=== PATIENT | female | born 1940 | race Caucasian/White ===

== ENCOUNTER 2020-10-10 15:25 | Inpatient (IN) | payer MEDICARE, OTHER ==
[~2020-10-10] VITALS: Ht 162.6 cm; Wt 41.3 kg
[~2020-10-10 15:25] MED LIST: CIPRO500 MG PO
[2020-10-10 16:36] LABS: APTT 22.1 SECONDS (22.8-39.4); INR 1.03 (0.85-1.17); PROTIME 12.5 SECONDS (11.6-15.0)
[2020-10-10 16:37] LABS: CALC OSMOLALITY 283 mosm/kg (275-300); CALCIUM 8.2 mg/dL (8.5-10.1); CHLORIDE - SERUM 102 mmol/L (98-107); CREATININE - SERUM 1.8 mg/dL (0.6-1.3); GLUCOSE 95 mg/dL (74-106); POTASSIUM - SERUM 3.6 mmol/L (3.5-5.1); SODIUM 136 mmol/L (136-145); UREA NITROGEN 46 mg/dL (7-18); eGFR NON AFRICAN AMERICAN 29 mL/min (90-120)
[2020-10-10 16:40] LABS: BASOPHILS 0.1 % (0-2); HEMATOCRIT 40.1 % (36.0-48.0); IMMATURE GRANULOCYTES 0.4 % (0-5); LYMPHOCYTE ABS# 1.36 10x3/uL (1.18-3.74); LYMPHOCYTES 13.6 % (15-50); MCHC 32.4 g/dL (31.0-37.0); MCV 101.8 fL (80.0-100.0); MEAN PLATELET VOLUME 9.7 fL (7.4-10.4); MONOCYTES 9.9 % (2-11); NEUTROPHIL ABS# 7.39 10x3/uL (1.56-6.13); PLATELET COUNT 409 10x3/uL (130-400); RBC 3.94 10x6/uL (4.00-5.40); RDW 15.9 % (11.5-14.5)
[2020-10-10 16:54] LABS: ALBUMIN 2.8 g/dL (3.4-5.0); ALKALINE PHOSPHATASE 88 U/L (30-120); ALT (SGPT) 12 U/L (10-68); BILIRUBIN - TOTAL 0.31 mg/dL (0.2-1.3); CKMB 1.7 U/L (0.0-3.6); CREATINE KINASE 31 UL (21-215); LIPASE 215 U/L (73-393); MAGNESIUM - SERUM 1.3 mg/dL (1.8-2.4); PROTEIN - SERUM 6.7 g/dL (6.4-8.2); THYROID STIMULATING HORMONE 3.15 uIU/mL (0.36-3.74); TROPONIN-I 0.016 ng/mL (0.000-0.060)
[2020-10-10 17:17] VITALS: BP 117/70
--- NOTE | 2020-10-10 18:40 | NUR ---
ASSISTED TO AMBULATE TO FOR URINE SPECIMEN. SPECIMEN TO LAB. PATIENT OFF O2 DURING THIS TIME. SPO2 86% UPON RETURN TO ROOM. 02 RESUMED AT 3L/M.
[2020-10-10 18:52] LABS: BILIRUBIN NEGATIVE (NEGATIVE); KETONE NEGATIVE (NEGATIVE); NITRITE NEGATIVE (NEGATIVE); UROBILINOGEN NORMAL mg/dL (< 2)
[2020-10-10 20:12] VITALS: BP 117/70
[2020-10-10 22:06] VITALS: BP 113/63
[2020-10-10 23:01] VITALS: BP 114/65
[2020-10-11 00:03] VITALS: BP 114/63
[2020-10-11 01:28] VITALS: BP 110/57
[2020-10-11] MEDS ORDERED: SYMBICORT 80-10.2 GM INH (02:20)
[2020-10-11] MEDS ORDERED: LEXAPRO20 MG PO (02:21)
[2020-10-11] MEDS ORDERED: ZYLOPRIM100 MG PO (02:22)
[2020-10-11 08:03] LABS: ALBUMIN 2.1 g/dL (3.4-5.0); ALKALINE PHOSPHATASE 75 U/L (30-120); BILIRUBIN - TOTAL 0.36 mg/dL (0.2-1.3); CALCIUM 7.5 mg/dL (8.5-10.1); CHLORIDE - SERUM 107 mmol/L (98-107); CKMB 1.3 U/L (0.0-3.6); CREATINE KINASE 28 UL (21-215); GLUCOSE 81 mg/dL (74-106); POTASSIUM - SERUM 3.6 mmol/L (3.5-5.1); PROTEIN - SERUM 5.3 g/dL (6.4-8.2); SODIUM 136 mmol/L (136-145)
[2020-10-11 08:04] LABS: ALT (SGPT) 7 U/L (10-68); CALC OSMOLALITY 278 mosm/kg (275-300); CARBON DIOXIDE 16.5 mmol/L (21.0-32.0); CREATININE - SERUM 1.2 mg/dL (0.6-1.3); MAGNESIUM - SERUM 1.9 mg/dL (1.8-2.4); TROPONIN-I < 0.017 ng/mL (0.000-0.060); UREA NITROGEN 34 mg/dL (7-18); eGFR NON AFRICAN AMERICAN 46 mL/min (90-120)
[2020-10-11 08:15] LABS: BASOPHILS 0.4 % (0-2); EOSINOPHILS 2.9 % (0-7); HEMATOCRIT 36.8 % (36.0-48.0); HEMOGLOBIN 11.8 g/dL (12-16); LYMPHOCYTE ABS# 1.06 10x3/uL (1.18-3.74); LYMPHOCYTES 13.3 % (15-50); MCH 33.1 pg (26.0-34.0); MCHC 32.1 g/dL (31.0-37.0); MCV 103.4 fL (80.0-100.0); MEAN PLATELET VOLUME 9.8 fL (7.4-10.4); MONOCYTES 9.4 % (2-11); NEUTROPHIL ABS# 5.82 10x3/uL (1.56-6.13); RBC 3.56 10x6/uL (4.00-5.40); RDW 16.2 % (11.5-14.5)
[2020-10-11 08:16] LABS: PLATELET COUNT 246 10x3/uL (130-400)
[2020-10-11 09:06] VITALS: BP 113/64
--- NOTE | 2020-10-11 12:20 | NUR ---
PATIENT SITTING HIGH FOWLERS AAOX4, RESP EVEN AND NON LABORED, NO S/S OF DISTRESS, MEDICATIONS ADMISNITERED WITH NO COMPLICATIONS, NO FUTRHER NEEDS AT THIS TIME, RONNELL FUNEZ
[2020-10-11 12:50] VITALS: Ht 162.6 cm; Wt 41.3 kg
--- NOTE | 2020-10-11 18:00 | NUR ---
I have reviewed this patient and I concur with the Shift Assessment completed by the Licensed Practical Nurse today this shift.
--- NOTE | 2020-10-11 18:02 | NUR ---
PATIENT DOES NOT HAVE A RIDE HOME UNTIL 10/12/20 AROUND 1000AM, WILL HOLD DISCHARGE UNTIL IN THE MORNING.
--- NOTE | 2020-10-11 18:10 | NUR ---
PATIENT WEARING SCD'S AND PATIENT EDUCATED ON THEM, RONNELL FUNEZ
--- NOTE | 2020-10-11 19:30 | NUR ---
RECEIVED REPORT, WILL ASSUME CARE OF PT, WATCHING TV, DENIES ANY NEEDS AT THIS TIME, BED IS LOW, SRX2, CALL LIGHT IN REACH, WILL CONTINUE PLAN OF CARE
[2020-10-11 20:09] VITALS: BP 112/26
--- NOTE | 2020-10-11 20:46 | NUR ---
GAVE WALK TEST TO RT
[2020-10-12 01:28] VITALS: BP 120/68
--- NOTE | 2020-10-12 02:54 | NUR ---
I have reviewed this patient and I concur with the Shift Assessment completed by the Licensed Practical Nurse today this shift.
[2020-10-12 05:00] LABS: BASOPHILS 0.2 % (0-2); EOSINOPHILS 3.6 % (0-7); HEMATOCRIT 35.2 % (36.0-48.0); HEMOGLOBIN 11.1 g/dL (12-16); IMMATURE GRANULOCYTES 0.2 % (0-5); LYMPHOCYTE ABS# 0.79 10x3/uL (1.18-3.74); LYMPHOCYTES 9.8 % (15-50); MCH 32.6 pg (26.0-34.0); MCHC 31.5 g/dL (31.0-37.0); MCV 103.5 fL (80.0-100.0); MEAN PLATELET VOLUME 9.4 fL (7.4-10.4); MONOCYTES 9.4 % (2-11); NEUTROPHIL ABS# 6.21 10x3/uL (1.56-6.13); NEUTROPHILS 76.8 % (40-80); RDW 16.3 % (11.5-14.5); WBC 8.1 10x3/uL (4.8-10.8)
[2020-10-12 05:07] LABS: PLATELET COUNT 330 10x3/uL (130-400)
[2020-10-12 05:23] LABS: ANION GAP 13.6 mmol/L (8-16); BILIRUBIN - TOTAL 0.38 mg/dL (0.2-1.3); CALCIUM 7.9 mg/dL (8.5-10.1); CARBON DIOXIDE 18.1 mmol/L (21.0-32.0); CREATININE - SERUM 1.1 mg/dL (0.6-1.3); POTASSIUM - SERUM 3.7 mmol/L (3.5-5.1); PROTEIN - SERUM 5.3 g/dL (6.4-8.2)
[2020-10-12 05:29] VITALS: BP 109/58
--- NOTE | 2020-10-12 06:36 | NUR ---
I have reviewed this patient and I concur with the Shift Assessment completed by the Licensed Practical Nurse today this shift.
[2020-10-12 08:00] VITALS: BP 100/60
[2020-10-12] MEDS ORDERED: MAGNESIUM OXID250 MG PO (08:58)
--- NOTE | 2020-10-12 09:23 | MORECARE ---
CASE MANAGEMENT DISCHARGE SUMMARY PATIENT: CIARA DAILEY UNIT: [id number] ADM DATE: 10/10/20 AGE: 80 : 39 SEX: F ROOM/BED: D.6427 AUTHOR: JEANETTE,DOC PHYSICIAN: REFERRING PHYSICIAN: ASHVIN MUELLER MD DATE OF SERVICE: 10/12/20 Case Management Discharge Planning Summary DCP REVIEW SUMMARY ANTICIPATED D/C DATE: 10/12/2020 EXPECTED LOS : 2 CASE STATUS: DCP Initiated INITIAL REVIEW: 10/10/2020 INITIAL REVIEWER: Nichol Maciel FINAL DISCHARGE DISPOSITION: : FINAL REVIEWER: FINAL REVIEW DATE: DCP Focus Questions & Answers DCP Screen QUESTION: ANSWER High Risk Factors: : None Walking limitation: Patient stated self rated walking limitation present? : No Age: : 79 + Prior living environment: : Lives with others Disability ranking: : Grade 1: No significant disability DCP Evaluation QUESTION: ANSWER Patient's ability to cope with chronic illness : d. No chronic illness Would patient like to participate in any Care Coordination programs (if applicable): : Not applicable Mental health screen: : No mental health history DCP Re-evaluation QUESTION: ANSWER Would patient like to participate in any Care Coordination programs (if applicable): : Not applicable PATIENT: CIARA DAILEY ENCOUNTER: [id number] MEDICAL RECORD#: [id number] ADMISSION DATE: 10/10/2020 DISCHARGE DATE: ATTENDING MD: : AGE: 80 MARITAL STATUS: M DC PLAN ID: [id number] FACILITY: [facility] PRINTED ON: 10/12/20 9:23 CT All edits/amendments must be made on the electronic document DICTATION DATE: 10/12/20922 [employer]: DM 10/12/20922 RPT#: [id number] DC DATE: STATUS: ADM IN [facility] [address] [place] [address] END OF REPORT
--- NOTE | 2020-10-12 09:33 | MORECARE ---
CASE MANAGEMENT DISCHARGE SUMMARY PATIENT: CIARA DAILEY UNIT: [id number] ADM DATE: 10/10/20 AGE: 80 : 39 SEX: F ROOM/BED: D.1342 AUTHOR: JEANETTE,DOC PHYSICIAN: REFERRING PHYSICIAN: ASHVIN MUELLER MD DATE OF SERVICE: 10/12/20 Case Management Discharge Planning Summary COMMENTS ENTERED DATE: 10/12/20 9:27 CT COMMENT TYPE: Discharge Planning REVIEWER: Nichol Maciel CM met with patient to assess discharge plan needs. Patient lives at home with her . She plans to return home with no services needed and feels this is a safe discharge. Patient states she is independent with ambulation and ADLs. She does have a walker in her attic but has not used this since her hip surgery 2 years ago. CM discussed the availability of home health services including home oxygen and medical equipment should that be needed. Patient declined HHS, SNF, IPR, and DME services at this time and is satisfied with DC plan. She states she has a large support system with 2 children and their families living close to her. Her daughter, Kellie Roblero ([phone]) will provide transportation when patient is discharged. CM will continue to follow and assist as needed. DCP REVIEW SUMMARY ANTICIPATED D/C DATE: 10/12/2020 EXPECTED LOS : 2 CASE STATUS: DCP Initiated INITIAL REVIEW: 10/10/2020 INITIAL REVIEWER: Nichol Maciel FINAL DISCHARGE DISPOSITION: : FINAL REVIEWER: FINAL REVIEW DATE: DCP Focus Questions & Answers DCP Screen QUESTION: ANSWER High Risk Factors: : None Walking limitation: Patient stated self rated walking limitation present? : No Age: : 79 + Prior living environment: : Lives with others Disability ranking: : Grade 1: No significant disability DCP Evaluation QUESTION: ANSWER Patient's ability to cope with chronic illness : a. Adequate (0-3 ED visits in 6 mos., adequate financial resources, attends scheduled appts.) Patient's current cognitive status: : *Oriented to person, place, situation, time and present Patient and/or caregiver agree upon recommended discharge plan? : Yes Physical Status: : Independent with ADL's Family / Caregiver's ability to cope with chronic illness: : a. Adequate (ability to meet patient's medical needs, ensures patient attends medical appts.) Functional screen assessment: : Basic needs can adequately be met by self Living Arrangements: : Home with Spouse/Significant Other Equipment needed for post hospitalization: : None Baseline cognitive status: : *Oriented to person, place, situation, time and present Living arrangements comments: : Patient states she has a large support system consisting of 2 of her children and their families living close to her. Patient with capacity for self-care or can be cared for in same environment as prior to hospitalization? : Yes Other Equipment comments: : No needs pending walk test results with PT Physical environment modification needed / anticipated for discharge: : No Medication Management: : Patient states can afford medications Pharmacy name(s): : [facility] on [address] Does Patient have transportation to get home and to follow-up medical appointments when discharged from the hospital? : Yes Would patient like to participate in any Care Coordination programs (if applicable): : Not applicable Comments: : Daughter (Kellie Roblero)will provide transportation after discharge. Does the patient have electricity at home? : Yes Does the patient have running water in their house? : Yes Equipment in use: : None Mental health screen: : No mental health history Psychosocial status: : Independent adult (65+) Psychosocial other comments: : Patient states she is independent with all ADLs Resources / Services in place: : Home with no additional needs Problems identified by the patient regarding discharge: : none DCP Re-evaluation QUESTION: ANSWER Would patient like to participate in any Care Coordination programs (if applicable): : Not applicable PATIENT: CIARA DAILEY ENCOUNTER: [id number] MEDICAL RECORD#: [id number] ADMISSION DATE: 10/10/2020 DISCHARGE DATE: ATTENDING MD: ARTURO: AGE: 80 MARITAL STATUS: M DC PLAN ID: [id number] FACILITY: [facility] PRINTED ON: 10/12/20 9:33 CT All edits/amendments must be made on the electronic document DICTATION DATE: 10/12/20932 CARTRIDGE FEEDER: WILLEM 10/12/20932 RPT#: [id number] DC DATE: STATUS: ADM IN [facility] [address] [place] [address] END OF REPORT
--- NOTE | 2020-10-12 11:27 | MORECARE ---
CASE MANAGEMENT DISCHARGE SUMMARY PATIENT: CIARA DAILEY UNIT: [id number] ADM DATE: 10/10/20 AGE: 80 : 39 SEX: F ROOM/BED: D.3520 AUTHOR: JEANETTE,DOC PHYSICIAN: REFERRING PHYSICIAN: ASHVIN MUELLER MD DATE OF SERVICE: 10/12/20 Case Management Discharge Planning Summary COMMENTS ENTERED DATE: 10/12/20 9:27 CT COMMENT TYPE: Discharge Planning REVIEWER: Nichol Maciel CM met with patient to assess discharge plan needs. Patient lives at home with her . She plans to return home with no services needed and feels this is a safe discharge. Patient states she is independent with ambulation and ADLs. She does have a walker in her attic but has not used this since her hip surgery 2 years ago. CM discussed the availability of home health services including home oxygen and medical equipment should that be needed. Patient declined HHS, SNF, IPR, and DME services at this time and is satisfied with DC plan. She states she has a large support system with 2 children and their families living close to her. Her daughter, Kellie Roblero ([phone]) will provide transportation when patient is discharged. CM will continue to follow and assist as needed. DCP REVIEW SUMMARY ANTICIPATED D/C DATE: 10/12/2020 EXPECTED LOS : 2 CASE STATUS: DCP Initiated INITIAL REVIEW: 10/10/2020 INITIAL REVIEWER: Nichol Maciel FINAL DISCHARGE DISPOSITION: : FINAL REVIEWER: FINAL REVIEW DATE: DCP Focus Questions & Answers DCP Screen QUESTION: ANSWER High Risk Factors: : None Walking limitation: Patient stated self rated walking limitation present? : No Age: : 79 + Prior living environment: : Lives with others Disability ranking: : Grade 1: No significant disability DCP Evaluation QUESTION: ANSWER Patient's ability to cope with chronic illness : a. Adequate (0-3 ED visits in 6 mos., adequate financial resources, attends scheduled appts.) Patient's current cognitive status: : *Oriented to person, place, situation, time and present Patient and/or caregiver agree upon recommended discharge plan? : Yes Physical Status: : Independent with ADL's Family / Caregiver's ability to cope with chronic illness: : a. Adequate (ability to meet patient's medical needs, ensures patient attends medical appts.) Functional screen assessment: : Basic needs can adequately be met by self Living Arrangements: : Home with Spouse/Significant Other Equipment needed for post hospitalization: : None Baseline cognitive status: : *Oriented to person, place, situation, time and present Living arrangements comments: : Patient states she has a large support system consisting of 2 of her children and their families living close to her. Patient with capacity for self-care or can be cared for in same environment as prior to hospitalization? : Yes Other Equipment comments: : No needs pending walk test results with PT Physical environment modification needed / anticipated for discharge: : No Medication Management: : Patient states can afford medications Pharmacy name(s): : [facility] on [address] Does Patient have transportation to get home and to follow-up medical appointments when discharged from the hospital? : Yes Would patient like to participate in any Care Coordination programs (if applicable): : Not applicable Comments: : Daughter (Kellie Roblero)will provide transportation after discharge. Does the patient have electricity at home? : Yes Does the patient have running water in their house? : Yes Equipment in use: : None Mental health screen: : No mental health history Psychosocial status: : Independent adult (65+) Psychosocial other comments: : Patient states she is independent with all ADLs Resources / Services in place: : Home with no additional needs Problems identified by the patient regarding discharge: : none DCP Re-evaluation QUESTION: ANSWER Would patient like to participate in any Care Coordination programs (if applicable): : Not applicable PATIENT: CIARA DAILEY ENCOUNTER: [id number] MEDICAL RECORD#: [id number] ADMISSION DATE: 10/10/2020 DISCHARGE DATE: 10/12/2020 ATTENDING MD: ARTURO: 1940- AGE: 80 MARITAL STATUS: M DC PLAN ID: [id number] FACILITY: [facility] PRINTED ON: 10/12/20 11:27 CT All edits/amendments must be made on the electronic document DICTATION DATE: 10/12/201126 PHOTOENGRAVER: WILLEM 10/12/201126 RPT#: [id number] DC DATE:10/12/20 STATUS: DIS IN [facility] [address] [place] [address] END OF REPORT
--- NOTE | 2020-10-13 17:35 | MORECARE ---
CASE MANAGEMENT DISCHARGE SUMMARY PATIENT: CIARA DAILEY UNIT: [id number] ADM DATE: 10/10/20 AGE: 80 : 39 SEX: F ROOM/BED: D.9446 AUTHOR: JEANETTE,DOC PHYSICIAN: REFERRING PHYSICIAN: ASHVIN MUELLER MD DATE OF SERVICE: 10/13/20 Case Management Discharge Planning Summary COMMENTS ENTERED DATE: 10/12/20 9:27 CT COMMENT TYPE: Discharge Planning REVIEWER: Nichol Maciel CM met with patient to assess discharge plan needs. Patient lives at home with her . She plans to return home with no services needed and feels this is a safe discharge. Patient states she is independent with ambulation and ADLs. She does have a walker in her attic but has not used this since her hip surgery 2 years ago. CM discussed the availability of home health services including home oxygen and medical equipment should that be needed. Patient declined HHS, SNF, IPR, and DME services at this time and is satisfied with DC plan. She states she has a large support system with 2 children and their families living close to her. Her daughter, Kellie Roblero ([phone]) will provide transportation when patient is discharged. CM will continue to follow and assist as needed. DCP REVIEW SUMMARY ANTICIPATED D/C DATE: 10/12/2020 EXPECTED LOS : 2 CASE STATUS: DCP Initiated INITIAL REVIEW: 10/10/2020 INITIAL REVIEWER: Nichol Maciel FINAL DISCHARGE DISPOSITION: 01 : Home or Self Care (Routine Discharge) FINAL REVIEWER: Nichol Maciel FINAL REVIEW DATE: 10/13/2020 DCP Focus Questions & Answers DCP Screen QUESTION: ANSWER High Risk Factors: : None Walking limitation: Patient stated self rated walking limitation present? : No Age: : 79 + Prior living environment: : Lives with others Disability ranking: : Grade 1: No significant disability DCP Evaluation QUESTION: ANSWER Patient's ability to cope with chronic illness : a. Adequate (0-3 ED visits in 6 mos., adequate financial resources, attends scheduled appts.) Patient's current cognitive status: : *Oriented to person, place, situation, time and present Patient and/or caregiver agree upon recommended discharge plan? : Yes Physical Status: : Independent with ADL's Family / Caregiver's ability to cope with chronic illness: : a. Adequate (ability to meet patient's medical needs, ensures patient attends medical appts.) Functional screen assessment: : Basic needs can adequately be met by self Living Arrangements: : Home with Spouse/Significant Other Equipment needed for post hospitalization: : None Living arrangements comments: : Patient states she has a large support system consisting of 2 of her children and their families living close to her. Baseline cognitive status: : *Oriented to person, place, situation, time and present Patient with capacity for self-care or can be cared for in same environment as prior to hospitalization? : Yes Other Equipment comments: : No needs pending walk test results with PT Physical environment modification needed / anticipated for discharge: : No Medication Management: : Patient states can afford medications Pharmacy name(s): : [facility] on [address] Does Patient have transportation to get home and to follow-up medical appointments when discharged from the hospital? : Yes Would patient like to participate in any Care Coordination programs (if applicable): : Not applicable Comments: : Daughter (Kellie Roblero)will provide transportation after discharge. Does the patient have electricity at home? : Yes Does the patient have running water in their house? : Yes Equipment in use: : None Mental health screen: : No mental health history Psychosocial status: : Independent adult (65+) Psychosocial other comments: : Patient states she is independent with all ADLs Resources / Services in place: : Home with no additional needs Problems identified by the patient regarding discharge: : none DCP Re-evaluation QUESTION: ANSWER Would patient like to participate in any Care Coordination programs (if applicable): : Not applicable PATIENT: CIARA DAILEY ENCOUNTER: [id number] MEDICAL RECORD#: [id number] ADMISSION DATE: 10/10/2020 DISCHARGE DATE: 10/12/2020 ATTENDING MD: ARTURO: 1940-Lauro-28 AGE: 80 MARITAL STATUS: M DC PLAN ID: [id number] FACILITY: [facility] PRINTED ON: 10/13/20 17:35 CT All edits/amendments must be made on the electronic document DICTATION DATE: 10/13/201734 PINBALL MACHINE REPAIRER: WILLEM 10/13/201734 RPT#: [id number] DC DATE:10/12/20 STATUS: DIS IN [facility] [address] [place] [address] END OF REPORT
== END 2020-10-12 11:19 | disposition home or self-care (01) | DRG 191 ==
LOC: D.ER 15:25 → D.M2 19:04 → D.EDHOLD 19:04 → D.M2 10-11 00:31
PROVIDERS: Family Medicine; ADMIT Emergency Medicine; ATTEND Emergency Medicine
DX: J44.1 Chronic obstructive pulmonary disease with (acute) exacerbation (principal); N17.9 Acute kidney failure, unspecified; E83.42 Hypomagnesemia; R53.1 Weakness; E86.0 Dehydration